=== PATIENT | female | born 1995 | race Hispanic/Latino ===

== ENCOUNTER 2016-11-27 10:15 | Emergency (ER) | payer OTHER ==
[~2016-11-27 10:15] MED LIST: LABE10TAB PO; VITAPRTA PO
[2016-11-27] MEDS ORDERED: ALBUTEROL SULFATE 2.5 MG/0.5 ML INH NEB SOLN As Ordered ONE (12:23)
--- NOTE | 2016-11-27 13:35 | EDDOCDS ---
Physician Documentation [facility] Name: Sonja Stanton Age: 21 yrs Sex: Female : 1995 Arrival Date: 11/27/2016 Time: 10:15 Bed TR8 Private MD: EVE Quan Disposition: 11/27/16 13:09 Discharged to Home/Self Care. Impression: Acute bronchitis - possible asthma exaccerbation. - Condition is Stable. - Discharge Instructions: Acute Bronchitis, How to Use an Inhaler, Asthma, Acute Bronchospasm. - Prescriptions for Albuterol Sulfate 90 mcg/actuation Inhalation HFA Aerosol Inhaler - inhale 2 puff by INHALATION route every 4 hours As needed; 1 Inhaler. - Medication Reconciliation, Local Pharmacy Hours form. - Follow up: EVE Quna; When: Call to arrange an appointment; Reason: Further diagnostic work-up, Recheck today's complaints, Continuance of care. - Problem is new. - Symptoms have improved. Historical: - Allergies: No known drug Allergies; - Home Meds: 1. unknown for blood pressure - PMHx: gestational HTN; Hypertension; - PSHx: ; - Social history: Smoking status: Patient states former smoker of tobacco. No barriers to communication noted, The patient speaks fluent Irish, Speaks appropriately for age. - Family history: Not pertinent. - : The pt / caregiver states he / she is not on anticoagulants. Home medication list is obtained from the patient. - Exposure Risk Screening:: None identified. Vital Signs: 11/27 10:18 BP 157 / 79 RA Sitting (auto/lg); Pulse 92; Resp 18; Temp 98.1(O); Pulse Ox 100% on jrd R/A; Weight 101.15 kg / 223 lbs (M); Height 5 ft. 1 in. (154.94 cm); Pain 5/10; 13:13 BP 145 / 72; Pulse 75; Resp 18; Temp 97.5(TE); Pulse Ox 99% on R/A; Pain 0/10; ct3 10:18 Body Mass Index 42.14 (101.15 kg, 154.94 cm) jrd MDM: 12:09 Peak Flow Pre & Post ordered. ar2 12:09 Albuterol 5 mg Nebulizer once ordered. ar2 12:17 Financial registration complete. mm15 12:45 Peak Flow Pre & Post complete. mlb1 12:48 [facility] Payment Agreement was scanned into [employer] and attached to record. mm15 Administered Medications: 12:30 Drug: Albuterol 5 mg [albuterol sulfate 2.5 mg/0.5 mL solution for nebulization (1 mL)] kt1 Route: Nebulizer; 12:41 Follow up: Response: Nebulizer completed kt1 Signatures: Wilmar Benitez RN RN mlb1 Heladio Stewart PA-C PA-C ar2 Brianna Kathleen RN RN hs1 Carolina Sin RN RN ttb Chay Keys mm15 Nathalie Dominguez kt1 The chart was reviewed and I authenticate all verbal orders and agree with the evaluation and treatment provided.Attachments: 12:48 [facility] Payment Agreement mm15 MTDD
--- NOTE | 2016-11-27 13:35 | EDDOCDS ---
Nurse's Notes [facility] Name: Sonja Stanton Age: 21 yrs Sex: Female : 1995 Arrival Date: 11/27/2016 Time: 10:15 Bed TR8 Private MD: Kadeem [facility] Diagnosis: Acute bronchitis-possible asthma exaccerbation Presentation: 11/27 10:21 Presenting complaint: Patient states: feels like she has been wheezing. Patient states hs1 hasn't gotten better since diagnosed with bronchitis last month. Adult Sepsis Screening: The patient does not have new or worsening altered mentation. Patient's respiratory rate is less than 22. Systolic blood pressure is greater than 100. Patient has a qSOFA score of 0- Negative Sepsis Screen. Suicide/Homicide risk assessment- the patient denies having any suicidal and/or homicidal ideations and does not present with any other emotional, behavioral or mental health complaints. Status: The patient is a dependent. Transition of care: patient was not received from another setting of care. 10:21 Acuity: FELIPA Level 4 hs1 10:21 Method Of Arrival: Walkin/Carried/Asstd hs1 Triage Assessment: 10:23 General: Appears in no apparent distress, Behavior is appropriate for age, cooperative. hs1 Pain: Location: back Pain currently is 5 out of 10 on a pain scale. HIV screening NA for this visit Offered previously. Respiratory: Onset: The symptoms/episode began/occurred yesterday, Reports shortness of breath pain with cough pain with respiration. Derm: Skin is pink, warm & dry. normal. Historical: - Allergies: No known drug Allergies; - Home Meds: 1. unknown for blood pressure - PMHx: gestational HTN; Hypertension; - PSHx: ; - Social history: Smoking status: Patient states former smoker of tobacco. No barriers to communication noted, The patient speaks fluent Wallisian, Speaks appropriately for age. - Family history: Not pertinent. - : The pt / caregiver states he / she is not on anticoagulants. Home medication list is obtained from the patient. - Exposure Risk Screening:: None identified. Screenin:33 Screening information is obtained from the patient. Fall risk: No risks identified. ttb Assistance ADL's: requires no assistance with activities of daily living. Abuse/DV Screen: The patient / caregiver reports he/she is: not in a situation that causes fear, pain or injury. Nutritional screening: No deficits noted. Advance Directives: Currently, there is no health care proxy. home support is adequate. Assessment: 11:35 Neurological: No deficits noted. Level of Consciousness is awake, alert. ttb Cardiovascular: Chest pain is denied. Respiratory: Airway is patent Respiratory effort is even, unlabored, Breath sounds with wheezes expiratory bilaterally. Reports shortness of breath cough that is the patient has mild shortness of breath. Derm: Skin is normal. 13:33 Reassessment: Patient appears in no apparent distress at this time. Patient denies pain ttb at this time. Patient states feeling better. Patient states symptoms have improved. General: Appears in no apparent distress, well nourished, well groomed, Behavior is appropriate for age, cooperative, pleasant. Neurological: Level of Consciousness is awake, alert. Respiratory: Airway is patent Respiratory effort is even, unlabored. Derm: Skin is normal. Vital Signs: 10:18 BP 157 / 79 RA Sitting (auto/lg); Pulse 92; Resp 18; Temp 98.1(O); Pulse Ox 100% on jrd R/A; Weight 101.15 kg (M); Height 5 ft. 1 in. (154.94 cm); Pain 5/10; 13:13 BP 145 / 72; Pulse 75; Resp 18; Temp 97.5(TE); Pulse Ox 99% on R/A; Pain 0/10; ct3 10:18 Body Mass Index 42.14 (101.15 kg, 154.94 cm) [facility] Vitals: 10:18 Log In Time: November 27, 2016 at 10:07. [facility] ED Course: 10:17 Patient visited by Manny Baum PCA. jrd 10:17 Kadeem [facility] is Private Physician. jrd 10:17 Patient moved to Waiting jrd 10:19 Patient visited by Manny Baum PCA. jrd 10:20 Patient moved to Pre RCE jrd 10:22 Triage Initiated hs1 11:32 Patient moved to Triage 2 ttb 11:35 Patient visited by Carolina Sin RN. ttb 11:51 Heladio Stewart PA-C is PHCP. ar2 11:51 Yonathan Funk MD is Attending Physician. ar2 11:51 Patient visited by Heladio Stewart PA-C. ar2 12:10 Patient moved to PR2 / ttb 12:44 Patient visited by Gilda Kaufman PCA. ct3 12:48 [facility] Payment Agreement was scanned into [employer] and attached to record. mm15 12:58 Patient name changed from Crystal\S\\S\Stanton\S\ to Crystal\S\ \S\Stanton. EDMS 13:08 Kadeem [facility] is Referral Physician. ar2 13:13 Patient visited by Gilda Kaufman PCA. ct3 13:25 Patient moved to TR8 ttb 13:33 The patient / caregiver is instructed regarding the plan of care and ED course. ttb Accompanied by Family Member, Significant Other, Patient has correct armband on for positive identification. 13:33 No IV's were initiated during this patient's visit. No procedures done that require ttb assistance. Administered Medications: 12:30 Drug: Albuterol 5 mg [albuterol sulfate 2.5 mg/0.5 mL solution for nebulization (1 mL)] kt1 Route: Nebulizer; 12:41 Follow up: Response: Nebulizer completed kt1 RT: 12:30 Initial Med Neb Given as ordered Patient was instructed and evaluated on procedure. kt1 Respiratory: Breath sounds with wheezes bilaterally. at expiration at inspiration. 12:39 Patient Effort good Pre Peak Flow: .35. Post Peak Flow: .53. kt1 Order Results: There are currently no results for this order. Outcome: 13:09 Discharge ordered by Provider. ar2 13:33 Discharge Assessment: Patient awake, alert and oriented x 3. No cognitive and/or ttb functional deficits noted. Patient verbalized understanding of disposition instructions. Patient awake and alert. patient administered narcotics - no. The following High Risk Discharge criteria are identified: None. Discharged to home ambulatory, with family, with significant other. Condition: good Condition: stable Condition: improved. Discharge instructions given to patient, significant other, Instructed on discharge instructions, follow up and referral plans. medication usage, Demonstrated understanding of instructions, medications, Pt was receptive of discharge instructions/ teaching. Prescriptions given X 1. No special radiology studies were completed. Property :Personal belongings accompany Pt. 13:34 Patient left the ED. ttb Signatures: Dispatcher [employer] Nathalie Boyle kt1 Heladio Stewart, PAHarjit PA-C ar2 Brianna Kathleen, RN RN hs1 Gilda Kaufman, BODY ARTIST BODY ARTIST ct3 Carolina Sin RN RN ttb Chay Keys mm15 Manny Baum, BODY ARTIST BODY ARTIST jrd MTDD
--- NOTE | 2016-11-29 14:36 | EDDOCDS ---
Physician Documentation [facility] Name: Sonja Stanton Age: 21 yrs Sex: Female : 1995 Arrival Date: 11/27/2016 Time: 10:15 Bed TR8 Private MD: EVE Quan Disposition: 11/27/16 13:09 Discharged to Home/Self Care. Impression: Acute bronchitis - possible asthma exaccerbation. - Condition is Stable. - Discharge Instructions: Acute Bronchitis, How to Use an Inhaler, Asthma, Acute Bronchospasm. - Prescriptions for Albuterol Sulfate 90 mcg/actuation Inhalation HFA Aerosol Inhaler - inhale 2 puff by INHALATION route every 4 hours As needed; 1 Inhaler. - Medication Reconciliation, Local Pharmacy Hours form. - Follow up: EVE Quan; When: Call to arrange an appointment; Reason: Further diagnostic work-up, Recheck today's complaints, Continuance of care. - Problem is new. - Symptoms have improved. Historical: - Allergies: No known drug Allergies; - Home Meds: 1. unknown for blood pressure - PMHx: gestational HTN; Hypertension; - PSHx: ; - Social history: Smoking status: Patient states former smoker of tobacco. No barriers to communication noted, The patient speaks fluent Malay, Speaks appropriately for age. - Family history: Not pertinent. - : The pt / caregiver states he / she is not on anticoagulants. Home medication list is obtained from the patient. - Exposure Risk Screening:: None identified. Vital Signs: 11/27 10:18 BP 157 / 79 RA Sitting (auto/lg); Pulse 92; Resp 18; Temp 98.1(O); Pulse Ox 100% on jrd R/A; Weight 101.15 kg / 223 lbs (M); Height 5 ft. 1 in. (154.94 cm); Pain 5/10; 13:13 BP 145 / 72; Pulse 75; Resp 18; Temp 97.5(TE); Pulse Ox 99% on R/A; Pain 0/10; ct3 10:18 Body Mass Index 42.14 (101.15 kg, 154.94 cm) jrd MDM: 12:09 Peak Flow Pre & Post ordered. ar2 12:09 Albuterol 5 mg Nebulizer once ordered. ar2 12:17 Financial registration complete. mm15 12:45 Peak Flow Pre & Post complete. mlb1 12:48 [facility] Payment Agreement was scanned into [employer] and attached to record. mm15 11/28 13:05 T-Sheet-- Draft Copy was scanned into [employer] and attached to record. gb Administered Medications: 11/27 12:30 Drug: Albuterol 5 mg [albuterol sulfate 2.5 mg/0.5 mL solution for nebulization (1 mL)] kt1 Route: Nebulizer; 12:41 Follow up: Response: Nebulizer completed kt1 Signatures: Sola Mahoney, Reg Reg gb Wilmar Benitez RN RN mlb1 Heladio Stewart PA-C PAHarjit ar2 Brianna Kathleen RN RN hs1 Carolina Sin RN RN ttb Chay Keys mm15 Nathalie Dominguez kt1 The chart was reviewed and I authenticate all verbal orders and agree with the evaluation and treatment provided.Attachments: 12:48 [facility] Payment Agreement mm15 11/28 13:05 T-Sheet-- Draft Copy gb Chart Complete MTDD
--- NOTE | 2016-11-29 14:36 | EDDOCDS ---
Physician Documentation [facility] Name: Sonja Stanton Age: 21 yrs Sex: Female : 1995 Arrival Date: 11/27/2016 Time: 10:15 Bed TR8 Private MD: EVE Quan Disposition: 11/27/16 13:09 Discharged to Home/Self Care. Impression: Acute bronchitis - possible asthma exaccerbation. - Condition is Stable. - Discharge Instructions: Acute Bronchitis, How to Use an Inhaler, Asthma, Acute Bronchospasm. - Prescriptions for Albuterol Sulfate 90 mcg/actuation Inhalation HFA Aerosol Inhaler - inhale 2 puff by INHALATION route every 4 hours As needed; 1 Inhaler. - Medication Reconciliation, Local Pharmacy Hours form. - Follow up: EVE Quan; When: Call to arrange an appointment; Reason: Further diagnostic work-up, Recheck today's complaints, Continuance of care. - Problem is new. - Symptoms have improved. Historical: - Allergies: No known drug Allergies; - Home Meds: 1. unknown for blood pressure - PMHx: gestational HTN; Hypertension; - PSHx: ; - Social history: Smoking status: Patient states former smoker of tobacco. No barriers to communication noted, The patient speaks fluent Kinyarwanda, Speaks appropriately for age. - Family history: Not pertinent. - : The pt / caregiver states he / she is not on anticoagulants. Home medication list is obtained from the patient. - Exposure Risk Screening:: None identified. Vital Signs: 11/27 10:18 BP 157 / 79 RA Sitting (auto/lg); Pulse 92; Resp 18; Temp 98.1(O); Pulse Ox 100% on jrd R/A; Weight 101.15 kg / 223 lbs (M); Height 5 ft. 1 in. (154.94 cm); Pain 5/10; 13:13 BP 145 / 72; Pulse 75; Resp 18; Temp 97.5(TE); Pulse Ox 99% on R/A; Pain 0/10; ct3 10:18 Body Mass Index 42.14 (101.15 kg, 154.94 cm) jrd MDM: 12:09 Peak Flow Pre & Post ordered. ar2 12:09 Albuterol 5 mg Nebulizer once ordered. ar2 12:17 Financial registration complete. mm15 12:45 Peak Flow Pre & Post complete. mlb1 12:48 [facility] Payment Agreement was scanned into [employer] and attached to record. mm15 11/28 13:05 T-Sheet-- Draft Copy was scanned into [employer] and attached to record. gb Administered Medications: 11/27 12:30 Drug: Albuterol 5 mg [albuterol sulfate 2.5 mg/0.5 mL solution for nebulization (1 mL)] kt1 Route: Nebulizer; 12:41 Follow up: Response: Nebulizer completed kt1 Signatures: Sola Mahoney, Reg Reg gb Wilmar Benitez RN RN mlb1 Heladio Stewart PA-C PAHarjit ar2 Brianna Kathleen RN RN hs1 Carolina Sin RN RN ttb Chay Keys mm15 Nathalie Dominguez kt1 The chart was reviewed and I authenticate all verbal orders and agree with the evaluation and treatment provided.Attachments: 12:48 [facility] Payment Agreement mm15 11/28 13:05 T-Sheet-- Draft Copy gb Chart Complete MTDD
--- NOTE | 2016-11-29 14:36 | EDDOCDS ---
Nurse's Notes [facility] Name: Sonja Stanton Age: 21 yrs Sex: Female : 1995 Arrival Date: 11/27/2016 Time: 10:15 Bed TR8 Private MD: Kadeem [facility] Diagnosis: Acute bronchitis-possible asthma exaccerbation Presentation: 11/27 10:21 Presenting complaint: Patient states: feels like she has been wheezing. Patient states hs1 hasn't gotten better since diagnosed with bronchitis last month. Adult Sepsis Screening: The patient does not have new or worsening altered mentation. Patient's respiratory rate is less than 22. Systolic blood pressure is greater than 100. Patient has a qSOFA score of 0- Negative Sepsis Screen. Suicide/Homicide risk assessment- the patient denies having any suicidal and/or homicidal ideations and does not present with any other emotional, behavioral or mental health complaints. Status: The patient is a dependent. Transition of care: patient was not received from another setting of care. 10:21 Acuity: FELIPA Level 4 hs1 10:21 Method Of Arrival: Walkin/Carried/Asstd hs1 Triage Assessment: 10:23 General: Appears in no apparent distress, Behavior is appropriate for age, cooperative. hs1 Pain: Location: back Pain currently is 5 out of 10 on a pain scale. HIV screening NA for this visit Offered previously. Respiratory: Onset: The symptoms/episode began/occurred yesterday, Reports shortness of breath pain with cough pain with respiration. Derm: Skin is pink, warm & dry. normal. Historical: - Allergies: No known drug Allergies; - Home Meds: 1. unknown for blood pressure - PMHx: gestational HTN; Hypertension; - PSHx: ; - Social history: Smoking status: Patient states former smoker of tobacco. No barriers to communication noted, The patient speaks fluent Spanish, Speaks appropriately for age. - Family history: Not pertinent. - : The pt / caregiver states he / she is not on anticoagulants. Home medication list is obtained from the patient. - Exposure Risk Screening:: None identified. Screenin:33 Screening information is obtained from the patient. Fall risk: No risks identified. ttb Assistance ADL's: requires no assistance with activities of daily living. Abuse/DV Screen: The patient / caregiver reports he/she is: not in a situation that causes fear, pain or injury. Nutritional screening: No deficits noted. Advance Directives: Currently, there is no health care proxy. home support is adequate. Assessment: 11:35 Neurological: No deficits noted. Level of Consciousness is awake, alert. ttb Cardiovascular: Chest pain is denied. Respiratory: Airway is patent Respiratory effort is even, unlabored, Breath sounds with wheezes expiratory bilaterally. Reports shortness of breath cough that is the patient has mild shortness of breath. Derm: Skin is normal. 13:33 Reassessment: Patient appears in no apparent distress at this time. Patient denies pain ttb at this time. Patient states feeling better. Patient states symptoms have improved. General: Appears in no apparent distress, well nourished, well groomed, Behavior is appropriate for age, cooperative, pleasant. Neurological: Level of Consciousness is awake, alert. Respiratory: Airway is patent Respiratory effort is even, unlabored. Derm: Skin is normal. Vital Signs: 10:18 BP 157 / 79 RA Sitting (auto/lg); Pulse 92; Resp 18; Temp 98.1(O); Pulse Ox 100% on jrd R/A; Weight 101.15 kg (M); Height 5 ft. 1 in. (154.94 cm); Pain 5/10; 13:13 BP 145 / 72; Pulse 75; Resp 18; Temp 97.5(TE); Pulse Ox 99% on R/A; Pain 0/10; ct3 10:18 Body Mass Index 42.14 (101.15 kg, 154.94 cm) [facility] Vitals: 10:18 Log In Time: November 27, 2016 at 10:07. [facility] ED Course: 10:17 Patient visited by Manny Baum PCA. jrd 10:17 Kadeem [facility] is Private Physician. jrd 10:17 Patient moved to Waiting jrd 10:19 Patient visited by Manny Baum PCA. jrd 10:20 Patient moved to Pre RCE jrd 10:22 Triage Initiated hs1 11:32 Patient moved to Triage 2 ttb 11:35 Patient visited by Carolina Sin RN. ttb 11:51 Heladio Stewart PA-C is PHCP. ar2 11:51 Yonathan Funk MD is Attending Physician. ar2 11:51 Patient visited by Heladio Stewart PA-C. ar2 12:10 Patient moved to PR / ttb 12:44 Patient visited by Gilda Kaufman PCA. ct3 12:48 [facility] Payment Agreement was scanned into [employer] and attached to record. mm15 12:58 Patient name changed from Crystal\S\\S\Stanton\S\ to Crystal\S\ \S\Stanton. EDMS 13:08 Kadeem [facility] is Referral Physician. ar2 13:13 Patient visited by Gilda Kaufman PCA. ct3 13:25 Patient moved to TR8 ttb 13:33 The patient / caregiver is instructed regarding the plan of care and ED course. ttb Accompanied by Family Member, Significant Other, Patient has correct armband on for positive identification. 13:33 No IV's were initiated during this patient's visit. No procedures done that require ttb assistance. 11/28 13:05 T-Sheet-- Draft Copy was scanned into [employer] and attached to record. gb Administered Medications: 02 12:30 Drug: Albuterol 5 mg [albuterol sulfate 2.5 mg/0.5 mL solution for nebulization (1 mL)] kt1 Route: Nebulizer; 12:41 Follow up: Response: Nebulizer completed kt1 RT: 12:30 Initial Med Neb Given as ordered Patient was instructed and evaluated on procedure. kt1 Respiratory: Breath sounds with wheezes bilaterally. at expiration at inspiration. 12:39 Patient Effort good Pre Peak Flow: .35. Post Peak Flow: .53. kt1 Order Results: There are currently no results for this order. Outcome: 13:09 Discharge ordered by Provider. ar2 13:33 Discharge Assessment: Patient awake, alert and oriented x 3. No cognitive and/or ttb functional deficits noted. Patient verbalized understanding of disposition instructions. Patient awake and alert. patient administered narcotics - no. The following High Risk Discharge criteria are identified: None. Discharged to home ambulatory, with family, with significant other. Condition: good Condition: stable Condition: improved. Discharge instructions given to patient, significant other, Instructed on discharge instructions, follow up and referral plans. medication usage, Demonstrated understanding of instructions, medications, Pt was receptive of discharge instructions/ teaching. Prescriptions given X 1. No special radiology studies were completed. Property :Personal belongings accompany Pt. 13:34 Patient left the ED. ttb Signatures: Dispatcher [employer] EDMS Sola Mahoney, Ulises Reg Nathalie Cazares kt1 Heladio Stewart, MARISSA PAHarjti ar2 Brianna Kathleen RN RN hs1 Gilda Kaufman, RESIDENT CARE MANAGER RN RESIDENT CARE MANAGER RN ct3 Carolina Sin RN RN ttb Chay Keys mm15 Manny Baum, RESIDENT CARE MANAGER RN RESIDENT CARE MANAGER RN jrd Chart Complete MTDD
== END 2016-11-27 13:34 | disposition home or self-care (01) ==
LOC: M ED 10:15
DX: J20.9 Acute bronchitis, unspecified (principal); I10 Essential (primary) hypertension; Z79.899 Other long term (current) drug therapy; Z87.891 Personal history of nicotine dependence